=== PATIENT | male | born 1995 | race Two or more races ===

== ENCOUNTER → 2024-06-05 | Emergency (ER) | payer OTHER ==
[~2024-06-05] VITALS: Ht 182.9 cm; Wt 104.3 kg
[~2024-06-05] MED LIST: ACETAMINOPHEN 500 MG GEL..CAP PO ONE
== END | disposition home or self-care (01) ==
LOC: ER 13:27
DX: J10.1 Influenza due to other identified influenza virus with other respiratory manifestations (principal); Z20.822 Contact with and (suspected) exposure to COVID-19